=== PATIENT | male | born 1955 ===

== ENCOUNTER 2021-06-06 16:45 | Emergency (ER) | payer OTHER ==
[~2021-06-06] VITALS: Ht 182.9 cm; Wt 104.3 kg
[2021-06-06 18:37] LABS: Basophils # (auto) 0 10 ^3/uL (0-0.2); Basophils % (auto) 0.3 % (0.0-2.0); Eosinophils # (auto) 0 10 ^3/uL (0-0.8); Eosinophils % (auto) 0.2 % (0.0-7.0); Hematocrit 49.4 % (41.0-53.0); Hemoglobin 15.9 g/dL (13.5-17.5); Lymphocytes # (auto) 0.9 10 ^3/uL (0.4-5.4); Lymphocytes % (auto) 10.3 % (10.0-50.0); Mean Corpuscular Hemoglobin 26.7 pg (28.0-32.0); Mean Corpuscular Hgb Conc. 32.2 g/dL (32.0-36.0); Mean Corpuscular Volume 82.8 fL (80.0-100.0); Monocytes # (auto) 0.4 10 ^3/uL (0-1.3); Monocytes % (auto) 4.6 % (0.0-12.0); Neutrophils # (auto) 7.7 10 ^3/uL (1.6-8.6); Neutrophils % (auto) 84.6 % (37.0-80.0); Nucleated Red Blood Cells % 0.1 %; Red Blood Cells 5.96 10^6/uL (4.5-5.90)
[2021-06-06 19:19] LABS: Albumin 4.1 g/dL (3.4-5.0); Calcium 9.7 mg/dL (8.5-10.1)
[2021-06-06 19:24] LABS: BUN/Creatinine Ratio 8.2; Bilirubin, Total 1.2 mg/dL (0.2-1.0)
[2021-06-06 20:54] VITALS: BP 166/75
== END 2021-06-06 20:56 | disposition home or self-care (01) ==
LOC: ER 16:45
DX: K21.9 Gastro-esophageal reflux disease without esophagitis (principal); R11.0 Nausea; E78.5 Hyperlipidemia, unspecified; I10 Essential (primary) hypertension
CPT/HCPCS: 36415; 80053; 84484; 85025; 93005

== ENCOUNTER 2021-09-03 17:44 | Emergency (ER) | payer MEDICARE, OTHER ==
[~2021-09-03] VITALS: Ht 182.9 cm; Wt 106.6 kg
[2021-09-03] MEDS ORDERED: amLODIPine BESYLATE 5 MG TAB PO ONE (17:45)
[2021-09-03 22:04] VITALS: BP 218/89
[2021-09-03] MEDS ORDERED: AMLO-489 PO (22:09)
== END 2021-09-03 22:26 | disposition home or self-care (01) ==
LOC: ER 18:09
DX: I10 Essential (primary) hypertension (principal); K21.9 Gastro-esophageal reflux disease without esophagitis; E78.5 Hyperlipidemia, unspecified